=== PATIENT | female | born 1980 | race Two or more races ===

== ENCOUNTER 2016-05-25 18:39 | Emergency (ER) | payer MEDICAID ==
[~2016-05-25] VITALS: Ht 170.2 cm; Wt 58.2 kg
[~2016-05-25 18:39] MED LIST: LISI-275; LISI10TA6 PO
[2016-05-25 20:07] LABS: Urine Bilirubin Negative (Negative); Urine Blood Negative /uL (Negative); Urine Color Yellow (Yellow); Urine Glucose Normal (Normal); Urine Ketone Negative (Negative); Urine Nitrite Negative (Negative); Urine RBC 2 /hpf (0 - 4); Urine Squamous Epithelial Cell FEW /hpf (<5); Urine Urobilinogen Normal (Negative)
[2016-05-25 20:18] LABS: Basophils # (auto) 0.1 uL; Basophils % (auto) 1.4 % (0.0-2.0); DEFINITIVE VIEW TRANSMISSION; Eosinophils # (auto) 0 uL; Eosinophils % (auto) 0.6 % (0.0-7.0); Hematocrit 35.5 % (36.0-46.0); Hemoglobin 10.9 g/dL (12.2-16.2); Lymphocytes # (auto) 1.9 uL; Lymphocytes % (auto) 32.1 % (10.0-50.0); Mean Corpuscular Hemoglobin 20.7 pg (28.0-32.0); Mean Corpuscular Hgb Conc. 30.8 g/dL (32.0-36.0); Mean Corpuscular Volume 67.4 fL (80.0-100.0); Mean Platelet Volume 8.9 fL (7.4-10.4); Monocytes # (auto) 0.4 uL; Monocytes % (auto) 7.4 % (0.0-12.0); Neutrophils # (auto) 3.5 uL; Neutrophils % (auto) 58.5 % (37.0-80.0); Platelet Count (auto) 466 10^3/uL (140-450); White Blood Cell 6.1 10^3/uL (4.4-10.8)
[2016-05-25 20:47] LABS: Albumin 3.7 g/dL (3.4-5.0); BUN/Creatinine Ratio 15.4; Calcium 8.2 mg/dL (8.5-10.1); Magnesium 2.2 mg/dL (1.6-2.6); Potassium 3.6 mmol/L (3.5-5.1)
[2016-05-25 20:50] LABS: Bilirubin, Total 0.4 mg/dL (0.2-1.0); Total Protein 7.2 g/dL (6.4-8.2)
[2016-05-26] MEDS ORDERED: ONDANSETRON HCL 4 MG/2 ML VIAL ONE (03:29)
[2016-05-26] MEDS ORDERED: cefTRIAXone 1GM/50ML D5W 50 ML IV ONE (03:45)
[2016-05-26] MEDS ORDERED: PROMETHAZINE HCL 6.25 MG/5 ML ORAL SYRUP PO ONE (03:45)
[2016-05-26] MEDS ORDERED: ONDANSETRON HCL 4 MG/2 ML VIAL IV ONE (03:45)
[2016-05-26] MEDS ORDERED: cloNIDine HCL 0.1 MG TAB PO ONE (04:45)
[2016-05-26 05:48] VITALS: BP 143/95
== END 2016-05-26 05:59 | disposition home or self-care (01) ==
LOC: ER 18:47
DX: J06.9 Acute upper respiratory infection, unspecified (principal); M54.9 Dorsalgia, unspecified; I10 Essential (primary) hypertension; Z98.51 Tubal ligation status; Z90.89 Acquired absence of other organs
CPT/HCPCS: 36415; 71020; 80053; 81001; 83735; 85025; 96365; 96375; 99285; J0696; J2405

== ENCOUNTER 2019-08-04 10:33 | Emergency (ER) | payer MEDICAID ==
[~2019-08-04] VITALS: Ht 170.2 cm; Wt 59.0 kg
[2019-08-04 13:58] VITALS: BP 190/93
== END 2019-08-04 14:09 | disposition home or self-care (01) ==
LOC: ER 10:33
DX: J06.9 Acute upper respiratory infection, unspecified (principal); I10 Essential (primary) hypertension
CPT/HCPCS: 71046

== ENCOUNTER 2019-12-23 19:29 | Emergency (ER) | payer MEDICAID ==
[~2019-12-23] VITALS: Ht 170.2 cm; Wt 67.1 kg
[~2019-12-23 19:29] MED LIST changes: +LISI-648 PO; -LISI10TA6 PO
[2019-12-23] MEDS ORDERED: cloNIDine HCL 0.1 MG TAB ONE (19:57)
[2019-12-23] MEDS ORDERED: cloNIDine HCL 0.1 MG TAB PO ONE (20:00)
[2019-12-23 22:01] LABS: Albumin 3.7 g/dL (3.4-5.0); Anion Gap 7 (5-15); BUN/Creatinine Ratio 16.4; Blood Urea Nitrogen 12 mg/dL (7-18); Calcium 9.2 mg/dL (8.5-10.1); Carbon Dioxide 28 mmol/L (21-32); Chloride 100 mmol/L (98-107); GFR African American 114 mL/min; GFR Non-African American 94 mL/min; Glucose 94 mg/dL (74-106); Potassium 3.5 mmol/L (3.5-5.1); Sodium 135 mmol/L (136-145)
[2019-12-23 22:06] LABS: Alanine Aminotransferase 26 U/L (13-56); Alkaline Phosphatase 59 U/L (45-117); Aspartate Aminotransferase 40 U/L (15-37); Bilirubin, Total 0.5 mg/dL (0.2-1.0); Total Protein 7.3 g/dL (6.4-8.2)
[2019-12-23 22:20] LABS: Basophils # (auto) 0.1 10 ^3/uL (0-0.2); Eosinophils # (auto) 0.1 10 ^3/uL (0-0.8); Lymphocytes # (auto) 1.8 10 ^3/uL (0.4-5.4); Monocytes # (auto) 0.6 10 ^3/uL (0-1.3); Nucleated Red Blood Cells % 0.1 %; Red Blood Cells 5.01 10^6/uL (4.0-5.20)
[2019-12-23 22:22] LABS: Basophils % (auto) 1.1 % (0.0-2.0); Eosinophils % (auto) 1.2 % (0.0-7.0); Lymphocytes % (auto) 22.8 % (10.0-50.0); Mean Corpuscular Hemoglobin 19.9 pg (28.0-32.0); Mean Corpuscular Hgb Conc. 31.2 g/dL (32.0-36.0); Mean Corpuscular Volume 63.8 fL (80.0-100.0); Monocytes % (auto) 7.3 % (0.0-12.0); Neutrophils # (auto) 5.3 10 ^3/uL (1.6-8.6); Neutrophils % (auto) 67.6 % (37.0-80.0); Platelet Count (auto) 447 10^3/uL (140-450); Red Cell Distribution Width 18.9 % (11.8-14.3); White Blood Cell 7.9 10^3/uL (4.4-10.8)
[2019-12-23 23:12] LABS: Urine Bacteria NONE SEEN /hpf (None Seen); Urine Blood Negative /uL (Negative); Urine Specific Gravity 1.005 (1.001-1.035); Urine WBC <1 /hpf (0 - 5)
[2019-12-24 00:13] LABS: Alcohol, Urine < 3.0 mg/dL (0-10); Amphetamine Screen, Urine NEGATIVE (NEGATIVE); Barbiturate Scree,Urine NEGATIVE (NEGATIVE); Benzodiazephine Screen, Urine NEGATIVE (NEGATIVE); Cannabinoid Screen, Urine NEGATIVE (NEGATIVE); Cocaine Screen, Urine NEGATIVE (NEGATIVE); Opiate Scree,Urine NEGATIVE (NEGATIVE); Phencyclidine Screen, Urine NEGATIVE (NEGATIVE)
[2019-12-24 01:50] VITALS: BP 130/72
== END 2019-12-24 01:57 | disposition home or self-care (01) ==
LOC: ER 19:29
DX: R03.0 Elevated blood-pressure reading, without diagnosis of hypertension (principal); D64.9 Anemia, unspecified; F41.9 Anxiety disorder, unspecified; I10 Essential (primary) hypertension
CPT/HCPCS: 36415; 70450; 71045; 80053; 80307; 81001; 83880; 84484; 85025; 93005

== ENCOUNTER 2020-10-04 08:53 | Emergency (ER) | payer MEDICAID ==
[~2020-10-04] VITALS: Ht 167.6 cm; Wt 63.5 kg
[~2020-10-04 08:53] MED LIST changes: -LISI-648 PO; +LISI-716 PO
[2020-10-04 08:55] VITALS: BP 149/102
[2020-10-04 09:24] LABS: Basophils # (auto) 0.1 10 ^3/uL (0-0.2); Lymphocytes # (auto) 1.2 10 ^3/uL (0.4-5.4); Mean Corpuscular Hemoglobin 20.9 pg (28.0-32.0); Monocytes # (auto) 0.4 10 ^3/uL (0-1.3); Neutrophils # (auto) 6.1 10 ^3/uL (1.6-8.6); White Blood Cell 7.8 10^3/uL (4.4-10.8)
[2020-10-04 09:26] LABS: Urine Bacteria NONE SEEN /hpf (None Seen); Urine Blood 1+ /uL (Negative); Urine Mucus FEW (None Seen); Urine Specific Gravity 1.023 (1.001-1.035); Urine WBC <1 /hpf (0 - 5)
[2020-10-04 09:28] LABS: Basophils % (auto) 1.1 % (0.0-2.0); Eosinophils # (auto) 0.1 10 ^3/uL (0-0.8); Eosinophils % (auto) 0.7 % (0.0-7.0); Hematocrit 33.1 % (36.0-46.0); Hemoglobin 10.4 g/dL (12.2-16.2); Lymphocytes % (auto) 14.8 % (10.0-50.0); Mean Corpuscular Hgb Conc. 31.6 g/dL (32.0-36.0); Mean Corpuscular Volume 66.2 fL (80.0-100.0); Monocytes % (auto) 4.9 % (0.0-12.0); Neutrophils % (auto) 78.5 % (37.0-80.0); Platelet Count (auto) 462 10^3/uL (140-450); Red Blood Cells 4.99 10^6/uL (4.0-5.20); Red Cell Distribution Width 18.6 % (11.8-14.3)
[2020-10-04 09:39] LABS: Albumin 3.8 g/dL (3.4-5.0); Potassium 3.8 mmol/L (3.5-5.1)
[2020-10-04 09:42] LABS: BUN/Creatinine Ratio 20.5
[2020-10-04 09:50] LABS: Bilirubin, Total 0.5 mg/dL (0.2-1.0); Total Protein 7.5 g/dL (6.4-8.2)
== END 2020-10-04 11:01 | disposition home or self-care (01) ==
LOC: ER 08:53
DX: R10.12 Left upper quadrant pain (principal); R10.32 Left lower quadrant pain; R19.7 Diarrhea, unspecified; I10 Essential (primary) hypertension; Z90.49 Acquired absence of other specified parts of digestive tract; Z79.899 Other long term (current) drug therapy
CPT/HCPCS: 36415; 74176; 80053; 81001; 85025

== ENCOUNTER 2021-04-23 01:43 | Inpatient (IN) | payer MEDICAID ==
[~2021-04-23] VITALS: Ht 170.2 cm; Wt 69.0 kg
[2021-04-23 02:54] LABS: Basophils # (auto) 0.1 10 ^3/uL (0-0.2); Eosinophils # (auto) 0.1 10 ^3/uL (0-0.8); Monocytes # (auto) 0.6 10 ^3/uL (0-1.3); Neutrophils # (auto) 3.9 10 ^3/uL (1.6-8.6); White Blood Cell 6.2 10^3/uL (4.4-10.8)
[2021-04-23 02:56] LABS: Basophils % (auto) 1.2 % (0.0-2.0); Hematocrit 34.8 % (36.0-46.0); Lymphocytes # (auto) 1.7 10 ^3/uL (0.4-5.4); Lymphocytes % (auto) 26.6 % (10.0-50.0); Mean Corpuscular Hgb Conc. 31.5 g/dL (32.0-36.0); Mean Corpuscular Volume 69.7 fL (80.0-100.0); Neutrophils % (auto) 62.2 % (37.0-80.0); Red Blood Cells 4.99 10^6/uL (4.0-5.20); Red Cell Distribution Width 19.6 % (11.8-14.3)
[2021-04-23 03:09] LABS: BUN/Creatinine Ratio 21.9; Calcium 9.2 mg/dL (8.5-10.1)
[2021-04-23 03:12] LABS: Bilirubin, Total 0.4 mg/dL (0.2-1.0); Total Protein 7.3 g/dL (6.4-8.2)
[2021-04-23] MEDS ORDERED: SODIUM CHLORIDE 0.9% 1,000 ML IV ONE (05:00)
[2021-04-23] MEDS ORDERED: ONDANSETRON HCL 4 MG/2 ML VIAL IV ONE (05:00)
[2021-04-23] MEDS ORDERED: PANTOPRAZOLE 40 MG/10 ML VIAL INJ IV ONE (05:00)
[2021-04-23] MEDS ORDERED: ONDANSETRON HCL 4 MG/2 ML VIAL ONE (05:11)
[2021-04-23 05:25] LABS: INR 0.96 (0.9-1.15)
[2021-04-23 06:22] LABS: Urine WBC None Seen /hpf (0 - 5)
[2021-04-23 06:43] LABS: Urine Bacteria FEW /hpf (None Seen); Urine Blood 1+ /uL (Negative); Urine Specific Gravity 1.011 (1.001-1.035)
[2021-04-23] MEDS ORDERED: IOHEXOL 300 MG/ML 100ML BOTTLE IJ ONE (09:09)
[2021-04-23] MEDS ORDERED: NITROGLYCERIN 0.4 MG SL TAB SL PRN (09:15)
[2021-04-23] MEDS ORDERED: MORPHINE SULFATE INJECTION 2 MG/ML SYRG IV PRN (09:15)
[2021-04-23] MEDS ORDERED: ACETAMINOPHEN 325 MG TAB PO PRN (09:15)
[2021-04-23] MEDS ORDERED: HYDROcodone-ACET 5/325MG TAB PO PRN (09:15)
[2021-04-23] MEDS: MORPHINE SULFATE INJECTION 2 MG/ML SYRG IV PRN ×3 (10:05→21:02)
[2021-04-23] MEDS: ONDANSETRON HCL 4 MG/2 ML VIAL IV PRN ×3 (10:07→21:02)
[2021-04-23] MEDS: ASCORBIC ACID 500 MG TAB PO SCH ×2 (11:56→22:19)
[2021-04-23] MEDS: MULTIPLE VITAMIN TAB PO SCH (11:56)
[2021-04-23] MEDS: ZINC SULFATE 220mg CAP or TAB PO SCH (11:56)
[2021-04-23] MEDS: SUCRALFATE 1 GM/10 ML ORAL SUSP PO SCH ×2 (17:00→22:18)
[2021-04-23] MEDS: PANTOPRAZOLE 40 MG/10 ML VIAL INJ IV SCH (22:18)
[2021-04-23] MEDS: TEMAZEPAM 15 MG CAP PO PRN (22:19)
[2021-04-24] MEDS: MORPHINE SULFATE INJECTION 2 MG/ML SYRG IV PRN ×4 (04:04→20:35)
[2021-04-24] MEDS: ONDANSETRON HCL 4 MG/2 ML VIAL IV PRN ×4 (04:04→20:32)
[2021-04-24 06:35] LABS: Basophils # (auto) 0 10 ^3/uL (0-0.2); Basophils % (auto) 0.9 % (0.0-2.0); Eosinophils # (auto) 0.1 10 ^3/uL (0-0.8); Lymphocytes # (auto) 1.5 10 ^3/uL (0.4-5.4); Monocytes # (auto) 0.4 10 ^3/uL (0-1.3); Nucleated Red Blood Cells % 0.1 %
[2021-04-24 06:37] LABS: Eosinophils % (auto) 1.9 % (0.0-7.0); Hematocrit 30.7 % (36.0-46.0); Hemoglobin 9.5 g/dL (12.2-16.2); Lymphocytes % (auto) 35.4 % (10.0-50.0); Mean Corpuscular Hemoglobin 21.7 pg (28.0-32.0); Mean Corpuscular Hgb Conc. 31.1 g/dL (32.0-36.0); Neutrophils # (auto) 2.3 10 ^3/uL (1.6-8.6); Neutrophils % (auto) 52.8 % (37.0-80.0); Red Blood Cells 4.39 10^6/uL (4.0-5.20); White Blood Cell 4.4 10^3/uL (4.4-10.8)
[2021-04-24 06:42] LABS: Mean Corpuscular Volume 69.9 fL (80.0-100.0); Red Cell Distribution Width 19.6 % (11.8-14.3)
[2021-04-24 06:43] LABS: Albumin 3.1 g/dL (3.4-5.0); Calcium 7.9 mg/dL (8.5-10.1)
[2021-04-24 06:48] LABS: BUN/Creatinine Ratio 8.8; Bilirubin, Total 0.4 mg/dL (0.2-1.0); Total Protein 6.2 g/dL (6.4-8.2)
[2021-04-24] MEDS: SUCRALFATE 1 GM/10 ML ORAL SUSP PO SCH ×4 (07:00→23:08)
[2021-04-24] MEDS: ZINC SULFATE 220mg CAP or TAB PO SCH (11:05)
[2021-04-24] MEDS: PANTOPRAZOLE 40 MG/10 ML VIAL INJ IV SCH ×2 (11:05→23:09)
[2021-04-24] MEDS: MULTIPLE VITAMIN TAB PO SCH (11:06)
[2021-04-24] MEDS: ASCORBIC ACID 500 MG TAB PO SCH ×2 (11:08→23:09)
[2021-04-24 12:18] VITALS: BP 104/70
[2021-04-24 16:54] VITALS: BP 125/83
[2021-04-24 22:00] VITALS: BP 112/68
[2021-04-24] MEDS: TEMAZEPAM 15 MG CAP PO PRN (23:08)
[2021-04-24] MEDS: DOCUSATE SOD 100 MG CAP PO PRN (23:09)
[2021-04-25] MEDS: SUCRALFATE 1 GM/10 ML ORAL SUSP PO SCH ×4 (03:44→21:21)
[2021-04-25 05:00] VITALS: BP 105/74
[2021-04-25 07:42] LABS: Eosinophils # (auto) 0.1 10 ^3/uL (0-0.8); Hemoglobin 9.8 g/dL (12.2-16.2); Lymphocytes # (auto) 1.3 10 ^3/uL (0.4-5.4); Monocytes # (auto) 0.5 10 ^3/uL (0-1.3); Neutrophils % (auto) 63.1 % (37.0-80.0)
[2021-04-25 07:48] LABS: Basophils # (auto) 0.1 10 ^3/uL (0-0.2); Basophils % (auto) 1.1 % (0.0-2.0); Eosinophils % (auto) 2.1 % (0.0-7.0); Hematocrit 31.4 % (36.0-46.0); Mean Corpuscular Hgb Conc. 31.3 g/dL (32.0-36.0); Monocytes % (auto) 9.7 % (0.0-12.0); Neutrophils # (auto) 3.4 10 ^3/uL (1.6-8.6); Nucleated Red Blood Cells % 0.1 %; Red Blood Cells 4.48 10^6/uL (4.0-5.20); White Blood Cell 5.4 10^3/uL (4.4-10.8)
[2021-04-25 07:53] LABS: Mean Corpuscular Volume 70.1 fL (80.0-100.0); Red Cell Distribution Width 19.6 % (11.8-14.3)
[2021-04-25] MEDS ORDERED: LIDOCAINE VISCOUS 2% 15ML UD ONE (08:12)
[2021-04-25] MEDS ORDERED: diphenhdrAMINE HCL 50 MG/1 ML VL ONE (08:12)
[2021-04-25 08:41] LABS: Albumin 3.3 g/dL (3.4-5.0); Calcium 8.2 mg/dL (8.5-10.1); Potassium 4.2 mmol/L (3.5-5.1)
[2021-04-25 08:44] LABS: BUN/Creatinine Ratio 6.1; Bilirubin, Total 0.3 mg/dL (0.2-1.0); Total Protein 6.3 g/dL (6.4-8.2)
[2021-04-25] MEDS: MULTIPLE VITAMIN TAB PO SCH (08:47)
[2021-04-25] MEDS: ZINC SULFATE 220mg CAP or TAB PO SCH (08:47)
[2021-04-25] MEDS: ASCORBIC ACID 500 MG TAB PO SCH ×2 (08:47→21:22)
[2021-04-25 09:14] VITALS: BP 103/68
[2021-04-25] MEDS: PANTOPRAZOLE 40 MG/10 ML VIAL INJ IV SCH ×2 (09:33→21:21)
[2021-04-25] MEDS: MIDAZOLAM HCL 5 MG/ML-1ML VIAL ONE ×3 (10:27→10:35)
[2021-04-25] MEDS: fentaNYL CITRATE 100 MCG/2 ML VL ONE ×2 (10:27→10:30)
[2021-04-25 12:57] VITALS: BP 105/73
[2021-04-25] MEDS: DOCUSATE SOD 100 MG CAP PO PRN (21:22)
[2021-04-25] MEDS: TEMAZEPAM 15 MG CAP PO PRN (21:22)
[2021-04-25 22:00] VITALS: BP 110/65
[2021-04-26 05:00] VITALS: BP_SYST 113; BP_SYST 116; BP_DIAS 53; BP_DIAS 74
[2021-04-26] MEDS: SUCRALFATE 1 GM/10 ML ORAL SUSP PO SCH ×2 (06:20→11:37)
[2021-04-26 06:56] LABS: Basophils # (auto) 0.1 10 ^3/uL (0-0.2); Eosinophils # (auto) 0.1 10 ^3/uL (0-0.8); Eosinophils % (auto) 1.3 % (0.0-7.0); Lymphocytes # (auto) 1.8 10 ^3/uL (0.4-5.4); Mean Corpuscular Hemoglobin 22.3 pg (28.0-32.0); Monocytes # (auto) 0.6 10 ^3/uL (0-1.3); Red Cell Distribution Width 19.4 % (11.8-14.3); White Blood Cell 8.6 10^3/uL (4.4-10.8)
[2021-04-26 07:01] LABS: Basophils % (auto) 0.8 % (0.0-2.0); Hematocrit 28.9 % (36.0-46.0); Hemoglobin 9.2 g/dL (12.2-16.2); Lymphocytes % (auto) 20.3 % (10.0-50.0); Monocytes % (auto) 6.8 % (0.0-12.0); Neutrophils # (auto) 6.1 10 ^3/uL (1.6-8.6); Neutrophils % (auto) 70.8 % (37.0-80.0); Red Blood Cells 4.14 10^6/uL (4.0-5.20)
[2021-04-26 07:03] LABS: Mean Corpuscular Volume 69.9 fL (80.0-100.0)
[2021-04-26 08:45] LABS: Calcium 7.8 mg/dL (8.5-10.1); Potassium 4.2 mmol/L (3.5-5.1)
[2021-04-26] MEDS: ASCORBIC ACID 500 MG TAB PO SCH (08:45)
[2021-04-26] MEDS: ZINC SULFATE 220mg CAP or TAB PO SCH (08:45)
[2021-04-26] MEDS: PANTOPRAZOLE 40 MG/10 ML VIAL INJ IV SCH (08:45)
[2021-04-26] MEDS: MULTIPLE VITAMIN TAB PO SCH (08:45)
[2021-04-26 08:50] LABS: Albumin 3.2 g/dL (3.4-5.0); BUN/Creatinine Ratio 13.8; Bilirubin, Total 0.2 mg/dL (0.2-1.0)
[2021-04-26] MEDS: DOCUSATE SOD 100 MG CAP PO PRN (08:53)
[2021-04-26 08:57] VITALS: BP 101/61
[2021-04-26] MEDS: ONDANSETRON HCL 4 MG/2 ML VIAL IV PRN (10:51)
[2021-04-26 12:39] VITALS: BP 132/78
[2021-04-26 14:12] VITALS: BP 132/78
== END 2021-04-26 16:05 | disposition home or self-care (01) | DRG 241 ==
LOC: ER 01:45 → TELE 09:10 → UNDOADMOB 09:10 → OBSVTOIN 09:11 → TELE 09:11 → TELE-WESTW 04-24 09:25 → INTOOBSV 04-26 00:26 → OBSVTOIN 04-26 00:26 → TELE-WESTW 04-26 01:42
PROVIDERS: ADMIT Internal Medicine; ATTEND Internal Medicine
PROC: 0DB68ZX Excision of Stomach, Via Natural or Artificial Opening Endoscopic, Diagnostic (ICD-10-PCS; 2021-04-25)
PROC: 0DB48ZX Excision of Esophagogastric Junction, Via Natural or Artificial Opening Endoscopic, Diagnostic (ICD-10-PCS; 2021-04-25)
PROC: 0DB98ZX Excision of Duodenum, Via Natural or Artificial Opening Endoscopic, Diagnostic (ICD-10-PCS; principal; 2021-04-25 10:20)
DX: K29.91 Gastroduodenitis, unspecified, with bleeding (principal); K22.11 Ulcer of esophagus with bleeding; D62 Acute posthemorrhagic anemia; D50.9 Iron deficiency anemia, unspecified; K44.9 Diaphragmatic hernia without obstruction or gangrene; I10 Essential (primary) hypertension; F41.9 Anxiety disorder, unspecified; Z90.49 Acquired absence of other specified parts of digestive tract; Z98.51 Tubal ligation status; Z87.11 Personal history of peptic ulcer disease; Z20.822 Contact with and (suspected) exposure to COVID-19
CPT/HCPCS: 36415; 43239; 74177; 80053; 81001; 84702; 85025; 85610; 86850; 86900; 86901; 87426; 93005; 96361; 96374; 96375; C9113; G0378; J2250; J2405

== ENCOUNTER 2021-07-20 11:15 | Emergency (ER) | payer MEDICAID ==
[~2021-07-20] VITALS: Ht 170.2 cm; Wt 69.9 kg
[2021-07-20 11:30] VITALS: BP 135/85
[2021-07-20] MEDS ORDERED: KETOROLAC TROMETH 60MG/2ML VIAL IM ONE (12:15)
[2021-07-20] MEDS ORDERED: IBUP800T27 PO (12:20)
[2021-07-20] MEDS ORDERED: METH750T22 PO (12:20)
== END 2021-07-20 12:29 | disposition home or self-care (01) ==
LOC: ER 11:15
DX: S16.1XXA Strain of muscle, fascia and tendon at neck level, initial encounter (principal); I10 Essential (primary) hypertension; Z98.51 Tubal ligation status; X58.XXXA Exposure to other specified factors, initial encounter; Y93.89 Activity, other specified; Y92.89 Other specified places as the place of occurrence of the external cause; Y99.8 Other external cause status
CPT/HCPCS: 72040; 96372; 99283; J1885

== ENCOUNTER 2021-11-09 07:07 | Emergency (ER) | payer MEDICAID ==
[~2021-11-09] VITALS: Ht 170.2 cm; Wt 70.3 kg
[~2021-11-09 07:07] MED LIST changes: +IBUP800T27 PO; +METH750T22 PO
[2021-11-09 08:21] LABS: Urine Bacteria FEW /hpf (None Seen); Urine Blood Negative /uL (Negative); Urine Specific Gravity 1.019 (1.001-1.035); Urine WBC 1 /hpf (0 - 5)
[2021-11-09 08:26] LABS: Basophils # (auto) 0.1 10 ^3/uL (0-0.2); Eosinophils # (auto) 0.1 10 ^3/uL (0-0.8); Lymphocytes # (auto) 1.4 10 ^3/uL (0.4-5.4); Neutrophils # (auto) 2.5 10 ^3/uL (1.6-8.6); Nucleated Red Blood Cells % 0.1 %; White Blood Cell 4.5 10^3/uL (4.4-10.8)
[2021-11-09 08:28] LABS: Basophils % (auto) 1.6 % (0.0-2.0); Eosinophils % (auto) 2.6 % (0.0-7.0); Hematocrit 29.4 % (36.0-46.0); Lymphocytes % (auto) 30.8 % (10.0-50.0); Mean Corpuscular Hemoglobin 19.3 pg (28.0-32.0); Mean Corpuscular Hgb Conc. 30.8 g/dL (32.0-36.0); Mean Corpuscular Volume 62.6 fL (80.0-100.0); Monocytes # (auto) 0.4 10 ^3/uL (0-1.3); Monocytes % (auto) 9.4 % (0.0-12.0); Neutrophils % (auto) 55.6 % (37.0-80.0); Red Cell Distribution Width 18.8 % (11.8-14.3)
[2021-11-09 08:39] LABS: Albumin 3.7 g/dL (3.4-5.0); Calcium 8.5 mg/dL (8.5-10.1)
[2021-11-09 08:43] LABS: BUN/Creatinine Ratio 16.3
[2021-11-09 08:44] LABS: Bilirubin, Total 0.4 mg/dL (0.2-1.0); Total Protein 7.4 g/dL (6.4-8.2)
[2021-11-09 12:26] VITALS: BP 140/91
== END 2021-11-09 12:30 | disposition home or self-care (01) ==
LOC: ER 07:07
DX: R10.32 Left lower quadrant pain (principal); I10 Essential (primary) hypertension; Z32.02 Encounter for pregnancy test, result negative; Z98.51 Tubal ligation status
CPT/HCPCS: 36415; 80053; 81001; 81025; 84702; 85025

== ENCOUNTER 2021-12-03 05:01 | Emergency (ER) | payer MEDICAID ==
[2021-12-03 10:53] VITALS: BP 118/88
== END 2021-12-03 11:01 | disposition home or self-care (01) ==
LOC: ER 05:01
DX: R20.0 Anesthesia of skin (principal); R51.9 Headache, unspecified; I10 Essential (primary) hypertension; Z98.51 Tubal ligation status
CPT/HCPCS: 70450

== ENCOUNTER 2022-04-10 04:39 | Emergency (ER) | payer MEDICAID ==
[~2022-04-10] VITALS: Ht 170.2 cm; Wt 72.0 kg
[2022-04-10] MEDS ORDERED: IPRATROPIUM BROM 0.5 MG/2.5ML INH SOL NEB ONE (06:45)
[2022-04-10] MEDS ORDERED: ALBUTEROL SULF 2.5 MG/0.5ML(0.5%) NEB SOLN NEB ONE (06:45)
[2022-04-10] MEDS ORDERED: methylPREDNISolone SOD SUCC 125 MG/2 ML VL IM ONE (06:45)
[2022-04-10] MEDS ORDERED: PRED20TA2 PO (06:55)
[2022-04-10] MEDS ORDERED: ALBUAER3 IN (07:04)
[2022-04-10 07:49] VITALS: BP 137/89
== END 2022-04-10 07:48 | disposition home or self-care (01) ==
LOC: ER 04:39
DX: J06.9 Acute upper respiratory infection, unspecified (principal); I10 Essential (primary) hypertension; Z98.51 Tubal ligation status; Z20.822 Contact with and (suspected) exposure to COVID-19
CPT/HCPCS: 36415; 71045; 87426; 87804; 94640; 96372; 99284; J2930; J7644

== ENCOUNTER 2022-04-13 13:12 | Emergency (ER) | payer MEDICAID ==
[~2022-04-13] VITALS: Ht 170.2 cm; Wt 69.0 kg
[~2022-04-13 13:12] MED LIST changes: +ALBUAER3 IN; +PRED20TA2 PO
[2022-04-13 13:18] VITALS: BP 156/102
== END 2022-04-13 16:24 | disposition left against medical advice (07) ==
LOC: ER 13:12
DX: J20.9 Acute bronchitis, unspecified (principal); I10 Essential (primary) hypertension; Z98.51 Tubal ligation status; Z53.29 Procedure and treatment not carried out because of patient's decision for other reasons